=== PATIENT | male | born 1965 ===

== ENCOUNTER 2022-09-14 19:49 | Emergency (ER) | payer OTHER ==
[~2022-09-14] VITALS: Ht 188 cm; Wt 120.5 kg
[2022-09-14] MEDS ORDERED: OMEP20 PO (19:56)
[2022-09-14] MEDS ORDERED: PROPARACAINE HCL 0.5% 15 ML OPHTHALMIC SOLUTION ONE (20:19)
[2022-09-14] MEDS ORDERED: PROPARACAINE HCL 0.5% 15 ML OPHTHALMIC SOLUTION OU ONE (20:30)
[2022-09-14] MEDS ORDERED: FLUORESCEIN SODIUM 1 MG STRIP OD ONE (21:00)
[2022-09-14] MEDS ORDERED: PERCT PO (21:13)
[2022-09-14] MEDS ORDERED: TOBR5DRO44 OU (21:13)
[2022-09-14] MEDS ORDERED: HYDR30CR39 TP (21:13)
[2022-09-14] MEDS ORDERED: ERYTHROMYCIN 0.5% 3.5 GM TUBE OPHTHALMIC OINTMENT OU ONE (21:15)
[2022-09-14] MEDS ORDERED: OxyCODONE HCL/ACETAMINOPHEN 5-325 MG TABLET PO ONE (21:15)
[2022-09-14 22:15] VITALS: BP 140/62
== END 2022-09-14 22:17 | disposition home or self-care (01) ==
LOC: EMS 19:53
DX: H10.13 Acute atopic conjunctivitis, bilateral (principal); L23.9 Allergic contact dermatitis, unspecified cause; Z98.890 Other specified postprocedural states; Z91.040 Latex allergy status; Z88.6 Allergy status to analgesic agent
CPT/HCPCS: 99283